=== PATIENT | female | born 1960 | race Caucasian/White ===

== ENCOUNTER → 2020-11-26 | Outpatient (CLI) | payer OTHER ==
[~2020-11-26] MED LIST: AMLODIPINE BESYL5 MG PO; CARVEDILOL12.5 MG PO; CITALOPRAM HBR40 MG PO; LISINOPRIL10 MG PO
== END | disposition home or self-care (01) ==
LOC: RAD 14:14 → OR 11-27 09:05 → EDSTATUS 11-27 11:00
PROVIDERS: ATTEND Specialist
DX: S62.101A Fracture of unspecified carpal bone, right wrist, initial encounter for closed fracture (principal); X58.XXXA Exposure to other specified factors, initial encounter; U07.1 COVID-19; Z01.810 Encounter for preprocedural cardiovascular examination; Z01.812 Encounter for preprocedural laboratory examination; Z53.8 Procedure and treatment not carried out for other reasons
CPT/HCPCS: 93005; U0002

== ENCOUNTER → 2020-12-06 | Day surgery (SDC) | payer OTHER ==
[~2020-12-06] MED LIST changes: +BUPIVACAINE HCL 0.5% INJ 30 ML VIAL INJ ONE; +CEFAZOLIN SOD 1 GM/NS 50ML 50 ML IV ONE; +HYDROMORPHONE 1MG/1ML INJ ONE; +LABETALOL HCL 20 ML ONE; +MEPERIDINE HCL INJ 25 MG/ML VIAL ONE
[2020-12-06 15:20] VITALS: BP 129/90
== END | disposition home or self-care (01) ==
LOC: OR 10:01
PROVIDERS: ATTEND Specialist
DX: S52.551A Other extraarticular fracture of lower end of right radius, initial encounter for closed fracture (principal); I10 Essential (primary) hypertension; F41.9 Anxiety disorder, unspecified; W01.198A Fall on same level from slipping, tripping and stumbling with subsequent striking against other object, initial encounter; Z88.6 Allergy status to analgesic agent; Z88.1 Allergy status to other antibiotic agents; Z86.16 Personal history of COVID-19
CPT/HCPCS: 76000; C1713; J0690; J1170; J2175

== ENCOUNTER → 2024-10-25 | Day surgery (SDC) | payer OTHER ==
[~2024-10-25] MED LIST changes: +ALPRAZOLAM0.5 M1 PO; -BUPIVACAINE HCL 0.5% INJ 30 ML VIAL INJ ONE; -CEFAZOLIN SOD 1 GM/NS 50ML 50 ML IV ONE; +CLONIDINE HCL0.2 MG PO; +FENTANYL CITRATE/PF 100MCG/2 ML INJ ONE; -HYDROMORPHONE 1MG/1ML INJ ONE; -LABETALOL HCL 20 ML ONE; +LACTATED RINGER'S 1,000 ML ONE; +LIDOCAINE HCL 2% LOCAL INJ 5 ML SDV VIAL INJ ONE; +LOSARTAN-HCTZ1 EACH PO; -MEPERIDINE HCL INJ 25 MG/ML VIAL ONE; +PROPOFOL IV EMULSION 50 ML IV ONE; +TRULANCE3 MG PO
[2024-10-25 12:10] VITALS: BP 133/91; PULSE 90; RESP 17; TEMP 97.3; O2SAT 98
== END | disposition home or self-care (01) ==
LOC: OR 08:58
PROVIDERS: ATTEND Internal Medicine Gastroenterology
DX: K29.70 Gastritis, unspecified, without bleeding (principal); D12.2 Benign neoplasm of ascending colon; K29.80 Duodenitis without bleeding; K31.89 Other diseases of stomach and duodenum; K21.00 Gastro-esophageal reflux disease with esophagitis, without bleeding; K59.09 Other constipation; K44.9 Diaphragmatic hernia without obstruction or gangrene; K64.8 Other hemorrhoids; I10 Essential (primary) hypertension; K83.8 Other specified diseases of biliary tract; I83.90 Asymptomatic varicose veins of unspecified lower extremity; B19.20 Unspecified viral hepatitis C without hepatic coma; N28.1 Cyst of kidney, acquired; F41.9 Anxiety disorder, unspecified; Z88.6 Allergy status to analgesic agent; Z88.1 Allergy status to other antibiotic agents; Z01.810 Encounter for preprocedural cardiovascular examination; Z79.899 Other long term (current) drug therapy
CPT/HCPCS: 43239; 45384; 45385; 93005; J2003; J2704; J3010; J7121